=== PATIENT | male | born 1960 | race Caucasian/White ===

== ENCOUNTER 2016-09-12 16:26 | Emergency (ER) | payer OTHER ==
[~2016-09-12] VITALS: Wt 125.0 kg
[2016-09-12] MEDS ORDERED: AMO500 PO (17:19)
--- NOTE | 2016-09-12 17:25 | ERD ---
ER Documentation Chief Complaint Date/Time DATE: 09/12/16 TIME: 17:19 Chief Complaint cough and congestion for the past few days. with intermittent fevers HPI Patient is a 56-year-old male with a past medical history of hypertension who presents to the emergency department with a cough and congestion. Patient states that he has had this cough for 1 month. He is reports that his cough is productive with occasional yellow sputum production. Patient states that his cough is worse at night. Patient also states that he is having nasal congestion for the last 3 days. He states that his rhinorrhea has yellow in color. Patient also reporting sinus pressure in the frontal and maxillary sinus regions. Patient reports intermittent tactile fevers and chills. Patient denies any ear pain, throat pain, decreased appetite, abdominal pain, diarrhea. Patient denies any chest pain, shortness of breath, arm pain, jaw pain, diaphoresis. Patient denies any sick contacts. Patient denies any recent travel. ROS All systems reviewed and are negative except as per history of present illness. Medications Home Meds Active Scripts Amoxicillin* (Amoxicillin*) 500 Mg Cap, 500 MG PO BID, #20 CAP Prov:KAMILAH FRAKN PA-C 09/12/16 PMhx/Soc History of Surgery: No Anesthesia Reaction: No Hx Neurological Disorder: No Hx Respiratory Disorders: Yes (pna,bronchitis) Hx Cardiac Disorders: Yes (htn) Hx Psychiatric Problems: No Hx Miscellaneous Medical Probl: No Hx Alcohol Use: No Hx Substance Use: No Hx Tobacco Use: No Physical Exam Vitals Vital Signs Date Time Temp Pulse Resp B/P Pulse Ox O2 Delivery O2 Flow Rate FiO2 09/12/16 18:11 98.5 09/12/16 16:39 99.8 85 20 165/94 96 Physical Exam GENERAL: Well-developed, well-nourished male. Appears in no acute distress. HEAD: Normocephalic, atraumatic. No deformities or ecchymosis. EYE: Pupils equal, round, and reactive to light. EOMs intact. No conjunctival erythema. No scleral icterus. No eye discharge. ENT: External ear without any masses or tenderness. Auditory canals clear bilaterally. No hemotympanium. TM visualized bilaterally, non-erythematous, non- bulging. Nasal septum midline. Nasal mucosa pink with no discharge. Turbinates normal. Oropharynx is pink without any tonsillar erythema or exudates. Frontal and maxillary sinuses tender to palpation bilaterally. NECK: Supple. No lymphadenopathy or thyromegaly. No meningismus. No JVD. No bruits. Trachea midline. LUNG: Clear to auscultation bilaterally. No rhonchi, wheezing, rales or coarse breath sounds. HEART: Regular rate and rhythm. No murmurs, rubs or gallops. ABDOMEN: Soft, nontender, and nondistended. Positive bowel sounds in all four quadrants. No rebound tenderness, no guarding. (-) McBurney's point tenderness. No CVA tenderness. BACK: No midline tenderness. EXTREMITES: Equal pulses bilaterally. No peripheral clubbing, cyanosis or edema. No unilateral leg swelling. NEUROLOGIC: Alert and oriented to person, place and time. Moving all four extremities. 5/5 strength in all extremities. Normal speech. Steady gait. (-) Brudzinski sign. (-) Kernig's sign. Procedures/MDM ED COURSE: The patient was stable throughout ED course. I kept the patient and/or family informed of laboratory and diagnostic imaging results throughout the ED course. DIAGNOSTIC IMAGING: Read by radiologist. DIAGNOSTIC IMAGING REPORT Patient: MICHAEL MOSS : 1960 Age: 56 Sex: M MR #: [id number] DOS: 09/12/16 1714 Ordering MD: KAMILAH FRANK PA-C Location: [facility] Room/Bed: PROCEDURE: XR Chest. CLINICAL INDICATION: Cough for 1 month. TECHNIQUE: Single frontal view. COMPARISON: None. FINDINGS: The lungs are clear. The heart size is normal. There is no pleural effusion. There is no pneumothorax. IMPRESSION: 1. Normal chest radiograph. RPTAT: QQ .Nitin Taylor MD, MD Date Time Electronically viewed and signed by .Nitin Taylor MD, on 09/12/2016 17:47 .R/ CC: KAMILAH FRANK PA-C MEDICAL DECISION MAKING: This is a 56-year-old male who presents with a productive cough, sinus tenderness and ongoing nasal congestion. Vital signs were reviewed. Patient was afebrile. Patient was not hypoxic. ENT exam revealed tenderness to palpation in the bilateral frontal and maxillary sinuses. Lung exam was normal. Chest x-ray was negative. Given these findings, the patients presentation is most consistent with acute sinusitis. I have a much lower clinical concern for bacterial infections including pneumonia, meningitis, otitis externa, acute otitis media, strep pharyngitis, epiglottitis or peritonsillar abscess. PRESCRIPTIONS: Amoxicillin Tylenol and Ibuprofen for fever and pain control. DISCHARGE: At this time, patient is stable for discharge and outpatient management. Supportive therapies such as OTC throat lozenges, salt water gurgles, popsicles and jello discussed. I have instructed the patient to follow-up with his/her primary care physician in 1-2 days. I have instructed the patient to promptly return to the ER for any new or worsening symptoms including increased pain, swelling, fever, nausea, vomiting, weakness or difficulty breathing. The patient and/or family expressed understanding of and agreement with this plan. All questions were answered. Home care instructions were provided. Patients blood pressure was elevated (>120/80) but appears stable without evidence of hypertensive emergency, hypertensive urgency or end-organ failure. I had discussion with the patient about the risks of hypertension. I have advised the patient to follow up with his/her primary care physician for outpatient monitoring and treatment for hypertension in 2-3 days. I have instructed the patient to return to the ER for any new or worsening symptoms including chest pain, shortness of breath, headache, blurred vision, confusion, nausea, vomiting or LOC. Departure Diagnosis: Primary Impression: Sinusitis Sinusitis location: maxillary Chronicity: acute Recurrence: not specified as recurrent Qualified Code: J01.00 - Acute maxillary sinusitis, recurrence not specified Condition: Stable Patient Instructions: Sinusitis, Abx Tx Referrals: [facility] YOU HAVE RECEIVED A MEDICAL SCREENING EXAM AND THE RESULTS INDICATE THAT YOU DO NOT HAVE A CONDITION THAT REQUIRES URGENT TREATMENT IN THE EMERGENCY DEPARTMENT. FURTHER EVALUATION AND TREATMENT OF YOUR CONDITION CAN WAIT UNTIL YOU ARE SEEN IN YOUR DOCTORS OFFICE WITHIN THE NEXT 1-2 DAYS. IT IS YOUR RESPONSIBILITY TO MAKE AN APPOINTMENT FOR FOLOW-UP CARE. IF YOU HAVE A PRIMARY DOCTOR --you should call your primary doctor and schedule an appointment IF YOU DO NOT HAVE A PRIMARY DOCTOR YOU CAN CALL OUR PHYSICIAN REFERRAL HOTLINE AT IF YOU CAN NOT AFFORD TO SEE A PHYSICIAN YOU CAN CHOSE FROM THE FOLLOWING [facility] [address] [facility] [address] [facility] [address] [facility] [address] [facility] [place] [address] [facility] [facility] [address] [facility]. [facility] YOU HAVE RECEIVED A MEDICAL SCREENING EXAM AND THE RESULTS INDICATE THAT YOU DO NOT HAVE A CONDITION THAT REQUIRES URGENT TREATMENT IN THE EMERGENCY DEPARTMENT. FURTHER EVALUATION AND TREATMENT OF YOUR CONDITION CAN WAIT UNTIL YOU ARE SEEN IN YOUR DOCTORS OFFICE WITHIN THE NEXT 1-2 DAYS. IT IS YOUR RESPONSIBILITY TO MAKE AN APPOINTMENT FOR FOLOW-UP CARE. IF YOU HAVE A PRIMARY DOCTOR --you should call your primary doctor and schedule and appointment IF YOU DO NOT HAVE A PRIMARY DOCTOR YOU CAN CALL OUR PHYSICIAN REFERRAL HOTLINE AT . IF YOU CAN NOT AFFORD TO SEE A PHYSICIAN YOU CAN CHOSE FROM THE FOLLOWING [facility] INSTITUTIONS: [facility] [address] [place] [address] [facility] [address] [place] [address] [facility] [address] [place] [address] Additional Instructions: Call your primary care doctor TOMORROW for an appointment during the next 1-2 days.See the doctor sooner or return here if your condition worsens before your appointment time. Follow up with your primary care physician for further management of your blood pressure. KAMILAH FRANK PA-C Sep 12, 2016 17:25
--- NOTE | 2016-09-12 17:48 | RADRPT ---
PROCEDURE: XR Chest. CLINICAL INDICATION: Cough for 1 month. TECHNIQUE: Single frontal view. COMPARISON: None. FINDINGS: The lungs are clear. The heart size is normal. There is no pleural effusion. There is no pneumothorax. IMPRESSION: 1. Normal chest radiograph. RPTAT: QQ .Nitin Taylor MD, Date Time Electronically viewed and signed by .Nitin Taylor MD, on 09/12/2016 17:47 .R/
[2016-09-12 18:11] VITALS: TEMP 98.5
== END 2016-09-12 18:12 | disposition home or self-care (01) ==
LOC: FTE 16:26
DX: J01.00 Acute maxillary sinusitis, unspecified (principal); I10 Essential (primary) hypertension
CPT/HCPCS: 71010